=== PATIENT | male | born 2000 | race Caucasian/White ===

== ENCOUNTER → 2020-11-29 | Outpatient (CLI) | payer BC ==
--- NOTE | 2020-11-29 16:17 | CT ---
EXAMINATION TYPE: CT brain wo con DATE OF EXAM: 11/29/2020 COMPARISON: None HISTORY: pre-op lesion removal CT DLP: [address] of the brain was performed. The ventricles, basal cisterns and sulci overlying the cerebral convexities demonstrate a normal appe arance. There is no evidence for intracranial hemorrhage or sulcal effacement. No mass effects are seen. Osseous calvarium is intact. If symptoms persist consider MRI as clinically warranted. IMPRESSION: 1. No acute intracranial process is seen at this time.
== END | disposition home or self-care (01) ==
LOC: RADCTMAIN 15:54
PROVIDERS: ATTEND Otolaryngology
DX: R90.0 Intracranial space-occupying lesion found on diagnostic imaging of central nervous system (principal)
CPT/HCPCS: 70450

== ENCOUNTER 2020-12-25 00:54 | Emergency (ER) | payer BC ==
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
[2020-12-25 01:04] VITALS: BP 134/88; PULSE 132; RESP 18; TEMP 98.4
[2020-12-25 01:08] LABS: Basophils # (A) 0.1 k/uL (0-0.2); Basophils % (A) 1 %; Eosinophils # (A) 0.2 k/uL (0-0.7); Eosinophils % (A) 2 %; HCT 44.5 % (39.0-53.0); Lymphocytes % (A) 25 %; MCH 33.1 pg (25.0-35.0); Mean Platelet Volume 6.5; Monocytes # (A) 0.5 k/uL (0-1.0); Monocytes % (A) 6 %; Neutrophils # (A) 5.1 k/uL (1.3-7.7); Neutrophils % (A) 64 %; Platelet Count 356 k/uL (150-450); RBC 4.84 m/uL (4.30-5.90); RDW 11.5 % (11.5-15.5); WBC 7.9 k/uL (4.0-11.0)
[2020-12-25 01:22] LABS: ALT 18 U/L (4-49); AST 29 U/L (17-59); African American GFR (CKD) >90 (>60 ml/min/1.73 sqM); Albumin 4.8 g/dL (3.5-5.0); Alcohol 17 mg/dL; Alkaline Phosphatase 81 U/L (38-126); Anion Gap 14 mmol/L; Blood Urea Nitrogen 12 mg/dL (9-20); Calcium 9.4 mg/dL (8.4-10.2); Carbon Dioxide 20 mmol/L (22-30); Chloride 105 mmol/L (98-107); Glucose 121 mg/dL (74-99); INR 1.1 (<1.2); Non-African American GFR(CKD) >90 (>60 ml/min/1.73 sqM); Partial Thromboplastin Time 22.4 sec (22.0-30.0); Potassium 3.5 mmol/L (3.5-5.1); Prothrombin Time 11.2 sec (9.0-12.0); Sodium 139 mmol/L (137-145); Total Bilirubin 0.7 mg/dL (0.2-1.3); Total Protein 7.3 g/dL (6.3-8.2)
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
[2020-12-25 01:58] LABS: Appearance,Urine Clear (Clear); Bilirubin,Urine Negative (Negative); Blood,Urine Negative (Negative); Color,Urine Light Yellow; Glucose,Urine (UA) Negative (Negative); Ketones,Urine Negative (Negative); Leukocyte Esterase,Urine Negative (Negative); Nitrite,Urine Negative (Negative); PH, Urine 5.5 (5.0-8.0); Protein,Urine Negative (Negative); Urobilinogen,Urine <2.0 mg/dL (<2.0)
[2020-12-25 02:12] LABS: Amphetamine Screen,Urine Not Detected (NotDetected); Barbiturate Screen,Urine Not Detected (NotDetected); Benzodiazepines Screen,Urine Not Detected (NotDetected); Cocaine Screen,Urine Not Detected (NotDetected); Methadone Screen, Urine Not Detected (NotDetected); Opiate Screen,Urine Detected (NotDetected); Oxycodone Screen, Urine Not Detected (NotDetected); Phencyclidine Screen,Urine Not Detected (NotDetected); Tricyclic Antidepressant,Urine Not Detected (NotDetected); Urn Cannabinoid Scrn Detected (NotDetected)
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
[2020-12-25] MEDS ORDERED: LIDOCAINE 1% INJ 10MG/ML (20 ML MDV) SQ ONE (02:24)
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
[2020-12-25 02:38] LABS: Specific Gravity,Urine >1.050 (1.001-1.035)
[2020-12-25] MEDS ORDERED: BACITRACIN OINT 1 EACH PACKET TOPICAL ONE (02:48)
[2020-12-25] MEDS ORDERED: HYDROcodone/APAP 5-325MG 1 EACH TAB PO STA (02:56)
== END 2020-12-25 03:11 | disposition home or self-care (01) ==
LOC: EC 00:54
DX: S41.041A Puncture wound with foreign body of right shoulder, initial encounter (principal); S27.0XXA Traumatic pneumothorax, initial encounter; F17.200 Nicotine dependence, unspecified, uncomplicated; W34.00XA Accidental discharge from unspecified firearms or gun, initial encounter; Y92.810 Car as the place of occurrence of the external cause
CPT/HCPCS: 99285; 96365; 20103; 36415; 93005; 86900; 86901; 80053; 84484; 85025; 85610; 85730; 86850; 81003; 80306; 80320; 71045; 71260; 70498; 74177; J0690; J2001; Q9967 ×2

== ENCOUNTER → 2022-05-24 | Outpatient (CLI) | payer BC ==
--- NOTE | 2022-05-24 12:49 | CA ---
Transthoracic Echo Report Name: Donavon Plunkett Age: 21 Gender: M : 2000 Exam Date: 05/24/2022 11:36 Exam Location: [facility] Ht (in): 68 Wt (lb): 160 Ordering Physician: Collin Borja DO Attending/Referring Phys: [employer] Jessica Granados RDCS Procedure CPT: Indications: R00.0 tachycardia Cardiac Hx: Technical Quality: Fair Contrast 1: Total Dose (mL): Contrast 2: Total Dose (mL): MEASUREMENTS (Male / Female) Normal Values 2D ECHO LV Diastolic Diameter PLAX 4.3 cm 4.2 - 5.9 / 3.9 - 5.3 cm LV Systolic Diameter PLAX 2.6 cm IVS Diastolic Thickness 1.1 cm 0.6 - 1.0 / 0.6 - 0.9 cm LVPW Diastolic Thickness 0.9 cm 0.6 - 1.0 / 0.6 - 0.9 cm LV Relative Wall Thickness 0.5 RV Internal Dim ED PLAX 2.3 cm LA Volume 35.8 cm??? 18 - 58 / 22 - 52 cm??? M-MODE Aortic Root Diameter MM 2.4 cm LA Systolic Diameter MM 3.2 cm LA Ao Ratio MM 1.3 AV Cusp Separation MM 1.4 cm DOPPLER AV Peak Velocity 107.0 cm/s AV Peak Gradient 4.6 mmHg AV Mean Velocity 74.3 cm/s AV Mean Gradient 2.5 mmHg AV Velocity Time Integral 21.2 cm LVOT Peak Velocity 83.6 cm/s LVOT Peak Gradient 2.8 mmHg MV Area PHT 3.8 cm??? Mitral E Point Velocity 104.9 cm/s Mitral A Point Velocity 41.4 cm/s Mitral E to A Ratio 2.5 MV Deceleration Time 201.4 ms MV E' Velocity 12.7 cm/s Mitral E to MV E' Ratio 8.3 TR Peak Velocity 203.1 cm/s TR Peak Gradient 16.5 mmHg Right Ventricular Systolic Press 21.5 mmHg FINDINGS Left Ventricle Normal Left ventricular size, wall thickness, systolic function with no obvious regional wall motion abnormalities. Normal Left ventricular diastolic filling pattern. Left ventricular ejection fraction is estimated at 55-60 %. Right Ventricle Normal right ventricular size and function. Right ventricular systolic pressure within normal limits. Right Atrium Normal right atrial size. Left Atrium Normal left atrial size. Mitral Valve Structurally normal mitral valve. No mitral stenosis,or prolapse. Trace mitral regurgitation Aortic Valve Trileaflet aortic valve. No aortic valve stenosis or regurgitation. Tricuspid Valve Structurally normal tricuspid valve. Mild tricuspid regurgitation. Pulmonic Valve Structurally normal pulmonic valve. Pericardium No pericardial effusion. Aorta Normal size aortic root and proximal ascending aorta. CONCLUSIONS 1. Normal size and systolic function 2. Trace mitral and mild tricuspid regurgitation Previewed by: Dr. Kimberley Andrade MD (Electronically Signed) Final Date: 24 May 2022 12:49
== END | disposition home or self-care (01) ==
LOC: RADECHMAIN 11:29
PROVIDERS: ATTEND Family Medicine
DX: I08.1 Rheumatic disorders of both mitral and tricuspid valves (principal); R00.0 Tachycardia, unspecified
CPT/HCPCS: 93270; 93306

== ENCOUNTER → 2024-10-01 | Outpatient (CLI) | payer BC ==
--- NOTE | 2024-10-19 15:19 | P.CEMON ---
[14] DAY EVENT MONITOR REPORT: INDICATION: Tachycardia R00.0. START DATE: 10/01/2024 END DATE: 10/14/2024 Patient wore the monitor for 12 days 11-hour FINDINGS: Patient's baseline rhythm was [normal sinus rhythm]. Average heart rate 78 bpm Highest heart rate 176 bpm at 10/02/2024 20:44 Lowest heart rate is 50 bpm No significant PAC and PVC burden noticed No evidence of second or third-degree AV block or heart block No evidence of pauses No evidence of atrial tachycardia or any atrial fibrillation Patient triggered events corresponded to normal sinus rhythm Conclusion Overall nonrevealing for any extended monitor monitor Please correlate clinically Stephan Angulo MD, FACC, RPVI Thank you for allowing [facility] to participate in this patient's care. Feel free to reach out in case of any followup questions.
--- NOTE | 2024-10-20 10:22 | EM ---
[14] DAY EVENT MONITOR REPORT: INDICATION: Tachycardia R00.0. START DATE: 10/01/2024 END DATE: 10/14/2024 Patient wore the monitor for 12 days 11-hour FINDINGS: Patient's baseline rhythm was [normal sinus rhythm]. Average heart rate 78 bpm Highest heart rate 176 bpm at 10/02/2024 20:44 Lowest heart rate is 50 bpm No significant PAC and PVC burden noticed No evidence of second or third-degree AV block or heart block No evidence of pauses No evidence of atrial tachycardia or any atrial fibrillation Patient triggered events corresponded to normal sinus rhythm Conclusion Overall nonrevealing for any extended monitor monitor Please correlate clinically MTDD
== END | disposition home or self-care (01) ==
LOC: RADECHMAIN 14:05
PROVIDERS: ATTEND Family Medicine
DX: R00.0 Tachycardia, unspecified (principal)
CPT/HCPCS: 93270

== ENCOUNTER → 2024-12-25 | Outpatient (CLI) | payer BC ==
--- NOTE | 2024-12-30 19:25 | P.PCN ---
Description of Procedure: CLINICAL: A home sleep apnea test has been done for confirmation of possible obstructive sleep apnea-hypopnea syndrome. DESCRIPTION OF PROCEDURE: RESULTS: Recording time was 8 hours 22 minutes. Evaluation time was 8 hours 10 minutes. Evaluation time is sufficient for making conclusion about results of the test. Raw data of sleep recording has been reviewed and is adequate. Respiratory channel showed 7 apneas and 13 hypopneas. Apnea-hypopnea index was 2.4 per hour. Pulse rate in the range between minimum 48, maximum 127, average 65 by computer calculation. Lowest desaturation was 91%. IMPRESSION: 1. No significant respiratory abnormalities have been documented during home sleep apnea test. Normal oxygenation during the test.. Please see other impressions from consultation. PLAN: 1. I will see patient for follow-up visit to explain results of the test and recommendations. 2. Watching weight. 3. Sleep hygiene with regular time in bed for at least 8 hours. 4. No driving if feeling any sleepiness. Thank you very much for allowing me to participate in the management of your patient. Sincerely, Jamari Vasquez MD, PhD, FAASM Diplomat of [employer] Sleep Medicine [employer] of [employer] [facility] [facility] [place] cc: Collin Borja DO
== END ==
LOC: 3 N SLEEP 13:00
PROVIDERS: ATTEND Internal Medicine
DX: G47.33 Obstructive sleep apnea (adult) (pediatric) (principal)